=== PATIENT | female | born 1985 | race Two or more races ===

== ENCOUNTER 2023-04-03 18:39 | Emergency (ER) | payer MEDICAID, OTHER ==
[~2023-04-03] VITALS: Ht 170.2 cm; Wt 89.4 kg
[2023-04-03 18:39] VITALS: BP 149/82; PULSE 106; RESP 16; O2SAT 99
== END 2023-04-04 01:21 | disposition left against medical advice (07) ==
LOC: ER 18:39
DX: S51.852A Open bite of left forearm, initial encounter (principal); Z53.21 Procedure and treatment not carried out due to patient leaving prior to being seen by health care provider; Y04.1XXA Assault by human bite, initial encounter; Y93.89 Activity, other specified; Y92.89 Other specified places as the place of occurrence of the external cause; Y99.8 Other external cause status